=== PATIENT | female | born 1975 | race Caucasian/White ===

== ENCOUNTER 2016-11-27 08:01 | Outpatient (CLI) ==
[2015-08-21 09:36] VITALS: BMI 32.9
--- NOTE | 2016-11-27 09:23 | MAMMO ---
EXAM: Bilateral digital screening mammogram History: Screening. Comparison: Bilateral mammogram 09/16/2014 Findings: MLO and CC views of bilateral breasts demonstrate heterogeneously dense breast parenchyma which can obscure small lesions. There are no dominant masses, no suspicious microcalcifications an d no architectural distortions Impression: Stable negative mammogram. Recommend followup routine screening mammography in 1 year. BIRADS 1
== END 2016-11-27 08:02 | disposition home or self-care (01) ==
LOC: RAD 08:01
PROVIDERS: ATTEND Physician Assistant
DX: Z12.31 Encounter for screening mammogram for malignant neoplasm of breast (principal)

== ENCOUNTER 2017-05-02 15:13 | Outpatient (CLI) | payer OTHER ==
[2015-08-21 09:36] VITALS: BMI 32.9
[2017-05-02 15:36] LABS: HEMATOCRIT 38.2 % (37.0-47.0); MEAN CORPUSCULAR HEMOGLOBIN 30.6 pg (27.0-31.0); MEAN CORPUSCULAR VOLUME 89.9 fl (81.0-99.0); RED BLOOD COUNT 4.25 10^6/ul (4.20-5.40); WHITE BLOOD COUNT 8.62 K/ul (4.6-10.2)
[2017-05-02 16:26] LABS: ALBUMIN 3.5 g/dL (3.4-5.0); ANION GAP 11.8; CALCIUM 8.9 mg/dL (8.2-10.2); CARBON DIOXIDE 26 mmol/L (21-32); CHLORIDE 104 mmol/L (98-107); GLUCOSE 108 mg/dL (70-110); POTASSIUM 3.8 mmol/L (3.5-5.10); SODIUM 138 mmol/L (136-145); TOTAL PROTEIN 7.9 g/dL (6.4-8.2)
[2017-05-02 16:27] LABS: ALANINE AMINOTRANSFERASE 10 U/L (12-78); ALKALINE PHOSPHATASE 50 U/L (42-98); ASPARTATE AMINO TRANSFERASE 12 U/L (15-37); BILIRUBIN,TOTAL < 0.3 mg/dL (0.00-1.20); BLOOD UREA NITROGEN 13 mg/dL (7-18); CREATININE 0.67 mg/dL (0.60-1.30); FOLATE 18.7 ng/mL (3.1-20.5); VALPORIC ACID (DEPAKENE) 35.51 ug/mL (50.00-100.00)
== END 2017-05-02 15:14 | disposition home or self-care (01) ==
LOC: LAB 15:13
PROVIDERS: ATTEND Physician Assistant
DX: R73.03 Prediabetes (principal); Z79.899 Other long term (current) drug therapy
CPT/HCPCS: 36415; 80053; 80164; 82542; 82746; 83036; 85027

== ENCOUNTER 2018-05-24 08:53 | Emergency (ER) ==
[2018-05-24 08:56] VITALS: BP 187/124; TEMP 98.7; BMI 35.4
[2018-05-24] MEDS ORDERED: LIDOCAINE HCL 1% SDV SUBCUT STA (09:49)
[2018-05-24] MEDS ORDERED: LIDOCAINE HCL 1% SDV ONE (09:51)
--- NOTE | 2018-05-24 10:09 | ED.PDOC ---
General ED Provider: Dr. BRISEIDA GUARDADO Chief Complaint: Fall Stated Complaint: fall head injury Time Seen by Physician: 09:00 Mode of Arrival: Walk-In Information Source: Patient, Assisted Living Exam Limitations: No limitations Nursing and Triage Documentation Reviewed and Agree: Yes Does patient meet sepsis criteria?: No If yes, has appropriate treatment been initiated?: No System Inflammatory Response Syndrome: Not Applicable Sepsis Protocol: For patient's 13 years and over: Temp is 96.8 and below OR 101 and greater Pulse >90 BPM Resp >20/minute Acutely Altered Mental Status Are patient's symptoms suggestive of a new infection, such as: -Pneumonia -Skin, Soft Tissue -Endocarditis -UTI -Bone, Joint Infection -Implantable Device -Acute Abdominal Infection -Wound Infection -Meningitis -Blood Stream Catheter Infection -Unknown Skin Complaint Exam - Laceration/Head/Facial Complaint/Exam Location of Injury: Forehead Mechanism of Injury: Laceration Onset/Duration: today Initial Severity: Mild Current Severity: Mild Aggravating: None Alleviating: None Associated Signs and Symptoms: Denies: Fever, Chills, Erythema, Numbness, Tingling Differential Diagnoses: Laceration Review of Systems - Review Of Systems Constitutional: Reports: No symptoms Eyes: Reports: No symptoms Ears, Nose, Mouth, Throat: Reports: No symptoms Respiratory: Reports: No symptoms Cardiac: Reports: No symptoms GI: Reports: No symptoms : Reports: No symptoms Musculoskeletal: Reports: No symptoms Skin: Reports: Other (laceration) Neurological: Reports: No symptoms Endocrine: Reports: No symptoms Hematologic/Lymphatic: Reports: No symptoms All Other Systems: Reviewed and Negative Past Medical History - Past Medical History Previously Healthy: No Endocrine: Reports: None Cardiovascular: Reports: Hypertension Respiratory: Reports: None Hematological: Reports: None Gastrointestinal: Reports: None Genitourinary: Reports: None Neuro/Psych: Reports: None Musculoskeletal: Reports: None Cancer: Reports: None Last Menstrual Period: n/a Other Pertinent Past Medical History: Mental Retardation. - Surgical History General Surgical History: Reports: Unknown - Family History Family History: Reports: Unknown - Social History Smoking Status: Never smoker Hx Substance Use: No Alcohol Screening: None Physical Exam - Physical Exam Appearance: Well-appearing, No pain distress, Well-nourished Eyes: SURJIT, EOMI, Conjunctiva clear ENT: Ears normal, Nose normal, Oropharynx normal Respiratory: Airway patent, Breath sounds clear, Breath sounds equal, Respirations nonlabored Cardiovascular: RRR, Pulses normal, No rub, No murmur GI/: Soft, Nontender, No masses, Bowel sounds normal, No Organomegaly Musculoskeletal: Normal strength, ROM intact, No edema, No calf tenderness Skin: Warm, Dry (1cm lacerationforhead) Neurological: Sensation intact, Motor intact, Reflexes intact, Cranial nerves intact, Alert, Oriented Psychiatric: Affect appropriate, Mood appropriate Procedures - Laceration/Wound Repair No standard instances Wound Description: Linear Wound Length (cm): 1cm Wound Width: 2mm Wound Depth: 2mm Wound Explored: Clean Wound Irrigated: Yes Wound Prep: Saline Anesthesia: Lidocaine Wound Debrided: Minimal Undermining: Minimal Wound Repaired With: Sutures, Steri-strips Suture Size and Type: 3 prolene Number of Sutures: 4 Critical Care Note - Critical Care Note Total Time (mins): 0 Course - Course Orders, Labs, Meds: Orders Category Date Time Status Lidocaine HCl/Pf [Lidocaine HCl 1% Sdv] MEDS 05/24/18 09:51 Discontinued 5 ml .ROUTE .STK-MED ONE Lidocaine HCl/Pf [Lidocaine HCl 1% Sdv] MEDS 05/24/18 09:49 Discontinued 5 ml SUBCUT ONCE STA Medications Discontinued Medications Generic Name Dose Route Start Last Admin Trade Name Freq PRN Reason Stop Dose Admin Lidocaine HCl 5 ml 05/24/18 09:49 Lidocaine Hcl 1% Sdv SUBCUT 05/24/18 09:50 ONCE STA Vital Signs: Temp Pulse Resp BP Pulse Ox 05/24/18 08:54 98.7 F 99 H 20 187/124 H 95 Departure - Departure Time of Disposition: 11:00 Disposition: HOME SELF-CARE Discharge Problem: Laceration of forehead Qualifiers: Encounter type: initial encounter Qualified Code(s): S01.81XA - Laceration without foreign body of other part of head, initial encounter Instructions: Head Injury (ED), Laceration (DC), Care For Your Stitches (DC), Care For Your Stitches (ED) Condition: Good Pt referred to PMD for follow-up: Yes IPMP verified?: No Additional Instructions: Please call your Family Physician as soon as possible to schedule a follow-up appointment. Allergies/Adverse Reactions: Allergies loperamide HCl [From Imodium A-D] Adverse Reaction (Verified 08/21/15 09:34) Home Medications: Ambulatory Orders Acetaminophen [Tylenol] 650 mg PO Q4H PRN 04/01/14 Eucalyptus/Menthol [Cough Drops] 1 each MM TID 04/01/14 Folic Acid 0.4 mg PO DAILY 04/01/14 Hydrochlorothiazide 25 mg PO DAILY 04/01/14 Ibuprofen 400 mg PO PRN 04/01/14 Lamotrigine [Lamictal] 200 mg PO BID 04/01/14 Lisinopril 10 mg PO DAILY 04/01/14 Norethindrone 0.35 mg PO DAILY 04/01/14 Ranitidine HCl 150 mg PO BEDTIME 04/01/14 Docusate Sodium [Colace] 100 mg PO DAILY 06/08/15 Polyethylene Glycol 3350 [Miralax] 17 gm PO DAILY 06/08/15 Acyclovir [Zovirax] 1 applic TP TID #60 tube 08/21/15 Acyclovir [Zovirax] 800 mg PO 5XD #35 tablet 08/21/15 Divalproex Sodium [Depakote] 500 mg PO DAILY 08/21/15 Hydrocodone/Acetaminophen [[place] 5-325 Tablet] 1 tab PO Q6HR #30 tablet Divalproex Sodium [Depakote Er] 500 mg PO BEDTIME #30 12/09/15 Lamotrigine [Lamictal] 200 mg PO BID #60 12/09/15 Divalproex Sodium [Depakote] 500 mg PO BEDTIME #30 03/02/16 Lamotrigine [Lamictal] 200 mg PO BID #60 03/02/16
[2018-05-24 10:42] LABS: URINE PREGNANCY TEST NEGATIVE (NEGATIVE)
--- NOTE | 2018-05-24 11:22 | CT ---
EXAM: CT of the head without contrast History: Head trauma and forehead laceration. Technique: Multiplanar CT images through the head were obtained without the administration of IV con trast Findings: The visualized paranasal sinuses and mastoid air cells are clear in general. No acute francia varial abnormalities. Frontal scalp hematoma and laceration. Intracranially there are bilateral areas of encephalomalacia within the cerebral hemispheres compatib le with old infarctions. There is ex vacuo dilatation of the right lateral ventricle. No midline sh ift and no hydrocephalus. No acute intracranial hemorrhage. Impression: 1. No acute intracranial process. 2. 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 3. Frontal scalp hematoma and laceration
--- NOTE | 2018-05-24 11:25 | CT ---
EXAM: CT of the cervical spine without contrast History: Head and neck trauma. Technique: Multiplanar CT images through the cervical spine were obtained without the administration of IV contrast Findings: The visualized upper lungs are clear. The visualized airway remains patent. No acute fracture or subluxation of the cervical spine. No prevertebral soft tissue swelling. Prede ntal space is not widened. Mild multilevel disc space narrowing with a few tiny osteophytes. Bony s rona canal is not significantly compromised. Impression: No acute osseous abnormality of the cervical spine
== END 2018-05-24 11:30 | disposition home or self-care (01) ==
LOC: ED 08:53
DX: S01.81XA Laceration without foreign body of other part of head, initial encounter (principal); W19.XXXA Unspecified fall, initial encounter
CPT/HCPCS: 81025; 99283

== ENCOUNTER 2018-11-01 15:41 | Emergency (ER) | payer OTHER ==
[2018-11-01 16:04] VITALS: BP 158/84; TEMP 99.6; BMI 32.8
--- NOTE | 2018-11-01 17:34 | ED.PDOC ---
General ED Provider: Dr. BRISEIDA GUARDADO Chief Complaint: Head Laceration Stated Complaint: forhead laceration after a fall today Time Seen by Physician: 16:00 (see photos) Mode of Arrival: Walk-In Information Source: Patient, Other Exam Limitations: No limitations Primary Care Provider: TRE PERKINS Nursing and Triage Documentation Reviewed and Agree: Yes Does patient meet sepsis criteria?: No System Inflammatory Response Syndrome: Not Applicable Sepsis Protocol: For patient's 13 years and over: Temp is 96.8 and below OR 101 and greater Pulse >90 BPM Resp >20/minute Acutely Altered Mental Status Are patient's symptoms suggestive of a new infection, such as: -Pneumonia -Skin, Soft Tissue -Endocarditis -UTI -Bone, Joint Infection -Implantable Device -Acute Abdominal Infection -Wound Infection -Meningitis -Blood Stream Catheter Infection -Unknown Trauma/Injury Complaint Exam - Head Injury Complaint/Exam Location of Pain: Reports: Forehead (left above left orbit), Lip (laceration) Mechanism of Injury: Reports: Trauma Onset/Duration: 1 hr ago Symptoms Are: Still present Initial Severity: Mild Current Severity: Mild Aggravating: Reports: None Associated Signs and Symptoms: Denies: Confusion, Memory loss, Seizure, Epistaxis, Dental malocclusion, Neck pain, Nausea, Vomiting Loss of Consciousness: None SDH Risk Factors: Present: None Cervical Spine Injury Risk Factors: Present: None Related Surgical History: Reports: None Immobilization Removed Post Exam: No Glascow Coma Scale (see protocol): 15 Focal Weakness: Present: None Focal Sensory Loss: Present: None Gait: Normal Gag Reflex Present: Yes Finger to Nose: Normal Nexus Low Risk Criteria: No post-midline CS tender, No evidence of intoxicat., No Altered LOC, No focal neuro deficit, No distracting injuries Differential Diagnoses: Sprain, Strain Review of Systems - Review Of Systems Constitutional: Reports: No symptoms Eyes: Reports: Other (laceration upper lip see photos) Ears, Nose, Mouth, Throat: Reports: No symptoms Respiratory: Reports: No symptoms Cardiac: Reports: No symptoms GI: Reports: No symptoms : Reports: No symptoms Musculoskeletal: Reports: No symptoms Skin: Reports: Other (laceration forhead see photos) Neurological: Reports: No symptoms Endocrine: Reports: No symptoms Hematologic/Lymphatic: Reports: No symptoms All Other Systems: Reviewed and Negative Past Medical History - Past Medical History Previously Healthy: No Endocrine: Reports: None Cardiovascular: Reports: Hypertension Respiratory: Reports: None Hematological: Reports: None Gastrointestinal: Reports: None Genitourinary: Reports: None Neuro/Psych: Reports: None Musculoskeletal: Reports: None Cancer: Reports: None Last Menstrual Period: N/A Other Pertinent Past Medical History: Mental Retardation. - Surgical History General Surgical History: Reports: Unknown - Family History Family History: Reports: Unknown - Social History Smoking Status: Never smoker Hx Substance Use: No Alcohol Screening: None - Immunizations Tetanus Shot up to Date: Yes (08/09/2009) Physical Exam - Physical Exam Appearance: Well-appearing, No pain distress, Well-nourished Eyes: SURJIT, EOMI, Conjunctiva clear ENT: Ears normal, Nose normal, Oropharynx normal Respiratory: Airway patent, Breath sounds clear, Breath sounds equal, Respirations nonlabored Cardiovascular: RRR, Pulses normal, No rub, No murmur GI/: Soft, Nontender, No masses, Bowel sounds normal, No Organomegaly Musculoskeletal: Normal strength, ROM intact, No edema, No calf tenderness Skin: Warm, Dry, Normal color Neurological: Sensation intact, Motor intact, Reflexes intact, Cranial nerves intact, Alert, Oriented Psychiatric: Affect appropriate, Mood appropriate Procedures - Laceration/Wound Repair No standard instances Wound Description: Irregular Wound Length (cm): 2cm Wound Width: 1mm Wound Depth: 1mm Wound Explored: Clean Wound Irrigated: No Wound Prep: Saline, Betadine Undermining: Minimal Wound Margins: Revised, Flaps aligned Wound Repaired With: Steri-strips Critical Care Note - Critical Care Note Total Time (mins): 0 Course - Course Orders, Labs, Meds: Orders Category Date Time Status CT CERVICAL SPINE W/O CONTRAST Stat RADS 11/01/18 16:[address] HEAD W/O CONTRAST Stat RADS 11/01/18 16:55 Ordered KNEE, RIGHT 4 VIEWS Stat RADS 11/01/18 16:58 Ordered Vital Signs: Temp Pulse Resp BP Pulse Ox 11/01/18 15:56 99.6 F 96 H 20 158/84 H 95 Departure - Departure Time of Disposition: 17:35 Disposition: HOME SELF-CARE Discharge Problem: Head injury Qualifiers: Encounter type: initial encounter Qualified Code(s): S09.90XA - Unspecified injury of head, initial encounter Forehead laceration Qualifiers: Encounter type: initial encounter Qualified Code(s): S01.81XA - Laceration without foreign body of other part of head, initial encounter Instructions: Laceration (ED), Laceration (DC) Condition: Good Pt referred to PMD for follow-up: Yes IPMP verified?: No Additional Instructions: Please call your Family Physician as soon as possible to schedule a follow-up appointment. Allergies/Adverse Reactions: Allergies loperamide HCl [From Imodium A-D] Adverse Reaction (Verified 11/01/18 16:20) Home Medications: Ambulatory Orders Ibuprofen 400 mg PO PRN PRN 04/01/14 Lamotrigine [Lamictal] 200 mg PO BID 04/01/14 Lisinopril 10 mg PO DAILY 04/01/14 Norethindrone 0.35 mg PO DAILY 04/01/14 Ranitidine HCl 150 mg PO BEDTIME 04/01/14 Polyethylene Glycol 3350 [Miralax] 17 gm PO DAILY 06/08/15 Divalproex Sodium [Depakote] 500 mg PO DAILY 11/01/18 Escitalopram Oxalate [Lexapro] 20 mg PO DAILY 11/01/18 Folic Acid 0.4 mg PO DAILY 11/01/18 Disposition Discussed With: Patient
--- NOTE | 2018-11-01 18:02 | CT ---
EXAM: CT of the head without contrast. HISTORY: Injury. Lacerations. COMPARISON: 05/24/2018 TECHNIQUE: Contiguous axial images at 5 mm intervals were obtained from the base of the skull to the vertex of the calvarium. No contrast was given. FINDINGS: Extra-axial spaces: There is dilatation of the right lateral ventricle, secondary to adjacent encepha lomalacia and volume loss in the right frontal lobe. Hemorrhage: None Cerebral Parenchyma: There are large areas of encephalomalacia in the frontal lobes, right greater le ft. No significant change in comparison to the prior study. Cerebellum: Unremarkable.. Masses/Mass effect: None. There is no midline shift. Vasculature: Normal. Osseus Structures: Normal. Soft tissues: There is a left frontal scalp hematoma/laceration. IMPRESSION: 1. No acute intracranial abnormalities. 2. Stable bifrontal encephalomalacia, right greater left. Stable dilatation of the right lateral ve ntricle. 3. Left frontal scalp hematoma. No acute osseous abnormalities.
--- NOTE | 2018-11-01 18:06 | CT ---
EXAM: CT scan cervical spine HISTORY: Fall COMPARISON: None. FINDINGS: CT scan cervical spine 05/24/2018 IMPRESSION: Contiguous axial images were obtained through the cervical spine rising 2-mm collimation . Sagittal and coronal reconstructions were imaged and reviewed. . The vertebral bodies are normal in height and alignment. The facet joints are intact. There is no acute fracture or dislocation.. Degenerate disc disease is noted at C4-C5 and C5-C6.. Impression: No acute findings
== END 2018-11-01 18:51 | disposition home or self-care (01) ==
LOC: ED 15:41
DX: S01.81XA Laceration without foreign body of other part of head, initial encounter (principal); S01.511A Laceration without foreign body of lip, initial encounter; W19.XXXA Unspecified fall, initial encounter; F79 Unspecified intellectual disabilities
CPT/HCPCS: 99283